=== PATIENT | male | born 1950 | race Caucasian/White ===

== ENCOUNTER 2024-05-19 17:08 | Emergency (ER) | payer OTHER, SELFPAY ==
[2024-05-19 17:11] VITALS: BP 149/81; PULSE 75; RESP 23; TEMP 36.7; O2SAT 99
--- NOTE | 2024-05-19 17:34 | EKG_ITS ---
[facility] Test Date: 2024-05-19 Pat Name: CONSTANTINO MCMILLAN Department: Room: - Gender: Male Diploma Medical Assistant: : [id number] Requested By: Jessica Mata Order Number: [id number] Reading MD: Jessica Mata Measurements Intervals [place]ay Rate: 66 P: -13 VA: 113 QRS: -12 QRSD: 102 T: 34 QT: 393 QTc: 413 Interpretive Statements SINUS RHYTHM WITH SHORT VA INTERVAL WITH OCCASIONAL VENTRICULAR PREMATURE COMPLEXES ST ELEVATION CONSISTENT WITH INJURY, PERICARDITIS, OR EARLY REPOLARIZATION [ST ELEVATION W/O NORMALLY INFLECTED T WAVE] No previous ECG available for comparison /[id number]
--- NOTE | 2024-05-19 17:34 | XR_ITS ---
Examination: AP chest single view Technique one AP portable semiupright chest single view Exam date and time: 12/18/2023 1758 hrs. Comparison 02/08/2011 Indications: Onset chest pain today. Findings: Accentuation basilar bronchovascular markings Normal heart size No lobar pneumonia or pulmonary edema Prominent osteopenia Impression: Basilar bronchitis pattern
[2024-05-19 17:45] VITALS: PULSE 75; PULSE 79; RESP 18; O2SAT 95; BMI 25.8
--- NOTE | 2024-05-19 17:50 | PC.NURSE ---
pt came in with c/o chest pain. pt states that he was racking leaves when he began feeling pain and became diaphoretic but decided to continue to work on the yard. pt states that pain was non radiating initially but states now he is feeling pain to left shoulder and reports feeling weak all over. sr with occasional pvc's noted on cardiac nurse practitioner. ekg showed some st elevation.
[2024-05-19] MEDS: ASPIRIN 81 MG CHEW 162 MG PO (18:24)
[2024-05-19 18:25] VITALS: BP 149/93; PULSE 74
[2024-05-19 18:25] LABS: Basophils % (Auto) 0 % (0-2.5); Eosinophils # (Auto) 0.1 Thou/mm3 (0.0-0.5); Eosinophils % (Auto) 1 % (0-10); Hematocrit 47.4 % (41.0-53.0); Hemoglobin 16.1 g/dL (13.5-16.0); Immature Granulocytes % (Auto) 1 % (0-0); Lymphocytes # (Auto) 1.3 Thou/mm3 (1.0-4.8); Lymphocytes % (Auto) 11 % (10-50); Mean Corpuscular Hemoglobin 29.6 pg (25.0-35.0); Mean Corpuscular Volume 87 fL (80-100); Monocytes # (Auto) 1.3 Thou/mm3 (0.0-0.8); Monocytes % (Auto) 10 % (0-12); Neutrophils # (Auto) 9.5 Thou/mm3 (1.8-7.7); Neutrophils % (Auto) 77 % (37-80); Nucleated Red Blood Cell % 0 /100 WBC (0); Platelet Count 156 Thou/mm3 (140-440); Red Blood Count 5.44 Miln/mm3 (4.50-5.90); White Blood Count 12.3 Thou/mm3 (3.8-10.6)
[2024-05-19] MEDS: METOPROLOL TARTRATE 25 MG TABLET PO (18:25)
[2024-05-19] MEDS: MORPHINE SULF INJ 10 MG/ML VIAL 2 MG IVP (18:26)
[2024-05-19] MEDS: HEPARIN SOD INJ 5000 UNIT/ML VIAL 4000 UNIT IV (18:27)
[2024-05-19] MEDS: CLOPIDOGREL BISULFATE 75 MG TABLET 300 MG PO (18:27)
--- NOTE | 2024-05-19 18:30 | PC.NURSE ---
pt reported to this nurse that he took cialis [address] cordero informed.
--- NOTE | 2024-05-19 18:30 | PC.CM ---
Addendum entered by Rere Mccurdy RN 05/19/24 19:21: Paperwork faxed to [place]. Addendum entered by Rere Mccurdy RN 05/19/24 19:19: Packet with CD given to night charge nurse. Addendum entered by Rere Mccurdy RN 05/19/24 18:51: Patient has been accepted by [facility] ED to ED with dr. Dakota Sun. number to call and give report [phone]. I called [place] and set up stat transfer. Addendum entered by Rere Mccurdy RN 05/19/24 18:41: I transfer call to from [facility] and [facility]. Original Note: 1810 I received a request to transfer patient for cardiology for STEMI. I contacted [facility] and initiated a transfer. i faxed over EKG. also called [facility] and I faxed over EKG. I made a disc for the packet.
[2024-05-19 18:38] LABS: Partial Thromboplastin Time 23.2 Seconds (22.0-36.0); Prothrombin Time 11.3 Seconds (9.0-12.2)
--- NOTE | 2024-05-19 18:43 | EDNOTE_ITS ---
ED Chest Pain RME/HPI General Chief Complaint: Chest Pain Stated Complaint: CHEST PAIN Time Seen by Provider: 05/19/24 18:10 Arrival date/time: 05/19/24 17:08 RME / HPI RME / HPI narrative: This section includes all my notes and documentations, including HPI, PE, and ED course. Kane Soto MD HPI: 73-year-old male here with a couple hour history of substernal chest pain. No fever or cough. No shortness of breath. No other complaints. ROS: All negative except as documented in HPI. Physical Exam: General: Alert and oriented. Appears uncomfortable. Eyes: Conjunctivae and lids clear. ENT: No nasal congestion. Neck: Supple. No JVD. Heart: RRR. Lungs: No respiratory distress. Good air movement. No rhonchi, wheezing, rales. Chest: No tenderness. Abdomen: Soft and nontender. Back: No CVA tenderness. Skin: Warm and dry. Neuro: Alert and oriented X 3. I reviewed all diagnostic test results. My interpretation of the EKG is STEMI. My interpretation of the chest x-ray is no acute findings, official radiology report is pending. Blood tests remarkable for troponin 0.095. At this point, diagnoses include STEMI. Treatment here included ASA, morphine, heparin, Plavix, metoprolol, NTG, and heparin. Significant improvement noted. I discussed the case with our raymond mill operator. About the presentation and exam and diagnostics and treatments here. And need of further care in the hospital. Recommends transfer due to no Spooling Machine Operator here currently. I discussed the case with Dr. Sun ([facility] Coil Maker). About the presentation and exam and diagnostics and treatments here. And need of further care there. Will accept the patient. Kane Soto MD Related Data Allergies Allergy/AdvReac Type Severity Reaction Status Date / Time No Known Allergies Allergy Mild Uncoded 03/13/08 12:49 Course Quality Measures none Orders Category Date Time Status Components Engineer NOW Care 05/19/24 17:34 Active EKG (ED ONLY) *Do not use* NOW Care 05/19/24 17:34 Completed Saline [Insert IV] NOW Care 05/19/24 18:11 Completed Referral - Tone Cabinet Assembler Stat Cons 05/19/24 18:11 Active EKG (ED Only) Stat Exams 05/19/24 17:34 Draft XR chest 1V portable Stat Exams 05/19/24 17:34 Taken B-Type Natriuretic Peptide Stat Lab 05/19/24 18:10 Completed CBC Stat Lab 05/19/24 18:10 Completed Comprehensive Metabolic Panel Stat Lab 05/19/24 18:10 Completed Lipase Stat Lab 05/19/24 18:10 Completed Magnesium Stat Lab 05/19/24 18:10 Completed Partial Thromboplastin Time Stat Lab 05/19/24 18:10 Completed Prothrombin Time with INR Stat Lab 05/19/24 18:10 Completed Troponin I Stat Lab 05/19/24 18:10 Completed Aspirin Chew Med 05/19/24 18:17 Discontinued 162 mg PO X1 ONE Aspirin Chew Med 05/19/24 18:11 Discontinued 324 mg PO X1 ONE Clopidogrel [Plavix] Med 05/19/24 18:11 Discontinued 300 mg PO X1 ONE Heparin Inj Med 05/19/24 18:11 Discontinued 4,000 unit IV X1 ONE Heparin/D5w 25K 250 ML Ivpb [Heparin in D5w Ivpb] Med 05/19/24 18:15 Pending 25,000 unit in 250 ml IV 12 units/kg/hr Metoprolol Tartrate [Lopressor] Med 05/19/24 18:11 Discontinued 25 mg PO X1 ONE Morphine Inj Med 05/19/24 18:11 Discontinued 2 mg IVP X1 ONE Nitroglycerin Oint 2% [Nitro-paste Oint 2%] Med 05/19/24 18:11 Discontinued 1 inch TOP X1 ONE Vital Signs Vital signs: Vital Signs Temperature 98.0 F 05/19/24 17:11 Pulse Rate 75 05/19/24 17:11 Respiratory Rate 23 H 05/19/24 17:11 Blood Pressure 149/81 H 05/19/24 17:11 Pulse Oximetry (%) 99 05/19/24 17:11 Oxygen Delivery Method Room Air 05/19/24 17:11 Chest Pain Patient data External records reviewed:: None Clinical information provided by:: patient Social determinants that could affect healthcare access:: none Patient has the following chronic illnesses:: None How is presenting disease/condition affected by chronic disease/condition?: no chronic disease Evaluation data The following diagnostics were reviewed and interpreted by me:: lab results, radiology exam(s) and EKG tracing(s) (STEMI) Lab and/or radiology exams considered but not ordered:: None Interpretation Summary: STEMI Medications / Prescriptions Medications or Prescriptions considered but not ordered:: None Medication administrations:: Medication Administration History Heparin Sodium/Dextrose (Heparin In D5w Ivpb) 25,000 unit in 250 mls @ 8.981 mls/hr IV .Q24H EFRAÍN; Protocol Stop: 06/02/24 18:14 Discontinued Medications Aspirin (Aspirin 81 Mg Chew) 324 mg PO X1 ONE Stop: 05/19/24 18:12 Last Admin: 05/19/24 18:47 Dose: Not Given Documented By: DO Non-Admin Reason: pt received 162 in route.dose changed Aspirin (Aspirin 81 Mg Chew) 162 mg PO X1 ONE Stop: 05/19/24 18:18 Last Admin: 05/19/24 18:24 Dose: 162 mg Documented By: DO Clopidogrel Bisulfate (Clopidogrel Bisulfate 75 Mg Tablet) 300 mg PO X1 ONE Stop: 05/19/24 18:12 Last Admin: 05/19/24 18:27 Dose: 300 mg Documented By: DO Heparin Sodium (Porcine) (Heparin Sod Inj 5000 Unit/Ml Vial) 4,000 unit IV X1 ONE; Protocol Stop: 05/19/24 18:12 Last Admin: 05/19/24 18:27 Dose: 4,000 unit Documented By: DO Co-signed By: ISSA Metoprolol Tartrate (Metoprolol Tartrate 25 Mg Tablet) 25 mg PO X1 ONE Stop: 05/19/24 18:12 Last Admin: 05/19/24 18:25 Dose: 25 mg Documented By: DO Morphine Sulfate (Morphine Sulf Inj 10 Mg/Ml Vial) 2 mg IVP X1 ONE Stop: 05/19/24 18:12 Last Admin: 05/19/24 18:26 Dose: 2 mg Documented By: DO Nitroglycerin (Nitroglycerin Oint 2% 1 Inch Packet) 1 inch TOP X1 ONE Stop: 05/19/24 18:12 Last Admin: 05/19/24 18:33 Dose: Not Given Documented By: DO Non-Admin Reason: pt has nitropaste from [facility] See chart Consultations Consultation(s) initiated? (list below): Yes Consultation #1 (Physician, Specialty, Details): Our Cardiology (Dr. Lema)--recommended transfer because no grinding and polishing laborer here currently. Time: 18:30 Consultation #2 (Physician, Specialty, Details): Dr. Sun (Coil Maker at [facility])--accepted the patient to their ED. Time: 18:42 Diagnosis Chest Pain Differential Diagnosis: pneumothorax, stable angina, unstable angina pectoris, atypical chest pain and st elevation myocardial infarction Most likely diagnosis given after review of the tests above:: STEMI Admission Indicated Admission indicated?: not indicated Explain why admission is indicated or not indicated:: No Spooling Machine Operator here currently Admission Request Was there a request for admission?: No Disposition Plan Disposition Plan: Transfer Critical Care Time Critical Care Time Critical Care Time: Yes Total Critical Care Time (min.): 32 Attestation: Due to a high probability of clinically significant, life threatening deterioration, the patient required my highest level of preparedness to intervene emergently and I personally spent this critical care time directly and personally managing the patient. This critical care time included obtaining a history; examining the patient; ordering and review of studies; arranging urgent treatment with development of a management plan; evaluation of patient's response to treatment; frequent reassessment; and discussions with family and other providers. It was exclusive of separately billable procedures and treating other patients and teaching time. Kane Soto MD Discharge Plan Plan Patient Disposition: [facility] Pt Being Transferred to: [facility] Service Needed for Transfer: Cardiology Disposition Comment: No Spooling Machine Operator Currently Patient condition on transfer: Stable Problem List Clinical Impression: ST elevation myocardial infarction (STEMI) Patient/Caregiver Discharge Instructions Print Language: Tajik Stand Alone Forms: [facility]a Award Info., Patient Portal Info Letter
[2024-05-19 18:49] LABS: B-Type Natriuretic Peptide 38 pg/mL (0-100)
--- NOTE | 2024-05-19 18:57 | PC.NURSE ---
report given to Melba leung [facility]
--- NOTE | 2024-05-19 19:00 | PC.NURSE ---
per dr cordero. hold heparin drip due to pt being transferred.
[2024-05-19 19:03] LABS: Alanine Aminotransferase 24 U/L (10-49); Albumin, Serum 4.3 gm/dL (3.4-4.8); Albumin/Globulin Ratio 1.4 (1.2-2.2); Alkaline Phosphatase 82 U/L (46-116); Anion Gap 14 (7-16); Aspartate Amino Transferase 24 U/L (0-34); BUN/Creatinine Ratio 14 Ratio (12-20); Bilirubin,Total 0.6 mg/dL (0.3-1.2); Blood Urea Nitrogen 19 mg/dL (9-23); Calcium 10.4 mg/dL (8.3-10.6); Calcium (Corrected) 10.4 mg/dL (8.5-10.1); Carbon Dioxide 22.5 mMol/L (20.0-31.0); Chloride 101 mMol/L (98-107); Creatinine (Component) 1.4 mg/dL (0.6-1.3); Estimated Creatinine Clearance 43.3 mL/min (>60); Glucose 167 mg/dL (74-106); Lipase 58 U/L (12-53); Osmolality,Calculated 280 (275-295); Potassium 3.6 mMol/L (3.4-5.1); Sodium 137 mMol/L (136-145); Total Protein 7.3 gm/dL (5.7-8.2); eGFR 53 See Note
[2024-05-19 19:05] LABS: Troponin I 0.095 ng/mL (0.0-0.045)
[2024-05-19 19:13] VITALS: BP 160/78; PULSE 87; RESP 17; TEMP 36.8; O2SAT 100
== END 2024-05-19 19:36 | disposition short-term general hospital (02) ==
PROVIDERS: Emergency Medicine; Emergency Provider Emergency Medicine
DX: I21.3 ST elevation (STEMI) myocardial infarction of unspecified site (principal); Z75.1 Person awaiting admission to adequate facility elsewhere
CPT/HCPCS: 36415; 71045; 80053; 83690; 83735; 83880; 84484; 85025; 85610; 85730; 93005; 96374; 99291; J1643; J2270; A9270; J1644

== ENCOUNTER → 2025-04-07 | Outpatient (BNVA) | payer OTHER, SELFPAY | END | disposition home or self-care (01) | PROVIDERS: Visit Provider Urology | DX: N40.1 Benign prostatic hyperplasia with lower urinary tract symptoms (principal); N13.8 Other obstructive and reflux uropathy; R31.9 Hematuria, unspecified; I10 Essential (primary) hypertension; Z87.442 Personal history of urinary calculi; I25.10 Atherosclerotic heart disease of native coronary artery without angina pectoris; N52.9 Male erectile dysfunction, unspecified; J45.909 Unspecified asthma, uncomplicated | CPT/HCPCS: 81003; 99212; G0463 ==